=== PATIENT | male | born 1945 | race Caucasian/White ===

== ENCOUNTER → 2016-08-26 | Outpatient (CLI) | payer MEDICARE, OTHER ==
[~2016-08-26] MED LIST: ACID1TAB7 PO; AMIO200T42 PO; AMLO10TA2 PO; AMLO5TAB2 PO; AMLO5TAB4 PO; APIX5TAB PO; ASPI-496 PO; ATOR80TA PO; BUDE10.2 INH; CARB1TAB22 PO; CHOL500050 PO; CLON1TAB PO; DABI150C PO; DOCU100C58 PO; FLUT1DIS3 INH; FURO40TA6 PO; GABA300C10 PO; GABA600T2 PO; GABA800T2 PO; HYDR10TA4 PO; HYDR25TA11 PO; LOSA50TA6 PO; MORP15TA3 PO; MS CONTIN PO; OMEP-110 PO; OXYC5CAP4 PO; OXYC5TAB3 PO; POTA10TA12 PO; PRED10TA PO; RIFA550T PO; RIVA10TA PO; ROSU20TA PO; SERT100T5 PO; SPIR100T PO; clindamycin
== END | disposition home or self-care (01) ==
LOC: CVU 14:01
PROVIDERS: ATTEND Family Medicine
DX: I70.203 Unspecified atherosclerosis of native arteries of extremities, bilateral legs (principal); I10 Essential (primary) hypertension; E78.5 Hyperlipidemia, unspecified; S91.001A Unspecified open wound, right ankle, initial encounter; Z95.1 Presence of aortocoronary bypass graft; Z87.891 Personal history of nicotine dependence; Z86.73 Personal history of transient ischemic attack (TIA), and cerebral infarction without residual deficits; X58.XXXA Exposure to other specified factors, initial encounter; Y93.89 Activity, other specified; Y92.89 Other specified places as the place of occurrence of the external cause; Y99.8 Other external cause status
CPT/HCPCS: 93922; 93925

== ENCOUNTER → 2016-11-15 | Outpatient (CLI) | payer MEDICARE, OTHER ==
[2016-11-15 12:34] LABS: ASPARTATE AMINO TRANSFERASE 86 U/L (15-37); BLOOD UREA NITROGEN 25 mg/dL (7-18)
== END | disposition home or self-care (01) ==
LOC: CFH 11:48
DX: K74.60 Unspecified cirrhosis of liver (principal); R16.1 Splenomegaly, not elsewhere classified; R18.8 Other ascites; K76.6 Portal hypertension; Z90.49 Acquired absence of other specified parts of digestive tract
CPT/HCPCS: 36415; 76700; 80053; 82105; 82140; 85025

== ENCOUNTER → 2016-12-13 | Outpatient (CLI) | payer MEDICARE, OTHER ==
[~2016-12-13] MED LIST changes: +OMNIPAQUE 350 MG/ML, 100ML BOTTLE ONE
== END | disposition home or self-care (01) ==
LOC: CFH 14:27
PROVIDERS: ATTEND Surgery
DX: I72.3 Aneurysm of iliac artery (principal); I77.810 Thoracic aortic ectasia; I70.0 Atherosclerosis of aorta; K86.89 Other specified diseases of pancreas; R18.8 Other ascites; J98.11 Atelectasis
CPT/HCPCS: 71260; 74177; Q9967

== ENCOUNTER 2017-02-08 23:21 | Emergency (ER) | payer MEDICARE, OTHER ==
[~2017-02-08] VITALS: Ht 195.6 cm; Wt 96.0 kg
[~2017-02-08 23:21] MED LIST changes: +HYDR50CA PO; +LACT10SO28 PO; -OMNIPAQUE 350 MG/ML, 100ML BOTTLE ONE; +OXYB5TAB7 PO; +OXYC5CAP2 PO; -OXYC5CAP4 PO; -RIFA550T PO; +RIFA550T4 PO; +SERT100T PO
[2017-02-09] MEDS ORDERED: SODIUM CHLORIDE 0.9% 1,000ML IVBOLUS ONE
[2017-02-09] MEDS ORDERED: SODIUM CHLORIDE FLUSH 10ML SYR IVF ONE
[2017-02-09] MEDS ORDERED: LIDOCAINE 1%, 20ML INFIL ONE
[2017-02-09 00:19] LABS: HEMATOCRIT 33.1 % (39.2-51.8); HEMOGLOBIN 10.9 g/dL (13.7-18.0); WHITE BLOOD COUNT 6.4 x10^3/uL (3.4-10)
[2017-02-09] MEDS ORDERED: LIDOCAINE 1%, 20ML ONE (00:23)
[2017-02-09] MEDS ORDERED: morphine SULFATE 10 MG/ML, 1ML ONE (00:24)
[2017-02-09] MEDS ORDERED: DIPH,PERTUSS(ACELL),TET VAC/PF 0.5 ML IM-VACC ONE ×2 (00:24)
[2017-02-09 00:30] LABS: ASPARTATE AMINO TRANSFERASE 122 U/L (15-37); BLOOD UREA NITROGEN 18 mg/dL (7-18)
[2017-02-09] MEDS ORDERED: morphine SULFATE 10 MG/ML, 1ML IVPush ONE (00:30)
[2017-02-09] MEDS ORDERED: MORPHINE SULFATE 4 MG/ML, 1ML IVPush ONE (00:30)
[2017-02-09 00:38] LABS: IS PT STATUS REG ER OR PRE ER? YES
[2017-02-09] MEDS ORDERED: BACITRACIN ZINC OINT 500U/GM, 0.9 GM ONE (02:19)
[2017-02-09 02:46] VITALS: BP 120/60
== END 2017-02-09 02:59 | disposition home or self-care (01) ==
LOC: ED 23:59
DX: S01.111A Laceration without foreign body of right eyelid and periocular area, initial encounter (principal); S80.01XA Contusion of right knee, initial encounter; I13.0 Hypertensive heart and chronic kidney disease with heart failure and stage 1 through stage 4 chronic kidney disease, or unspecified chronic kidney disease; N18.9 Chronic kidney disease, unspecified; I50.9 Heart failure, unspecified; I48.91 Unspecified atrial fibrillation; J44.9 Chronic obstructive pulmonary disease, unspecified; G20 Parkinson's disease; F95.2 Tourette's disorder; K74.60 Unspecified cirrhosis of liver; W19.XXXA Unspecified fall, initial encounter; Y93.89 Activity, other specified; Y92.098 Other place in other non-institutional residence as the place of occurrence of the external cause; Y99.8 Other external cause status; I25.2 Old myocardial infarction; Z95.1 Presence of aortocoronary bypass graft; Z96.651 Presence of right artificial knee joint
CPT/HCPCS: 12052; 36415; 70450; 70486; 71010; 72125; 73564; 80053; 81001; 84484; 85025; 85610; 85730; 87086; 90471; 90715; 93005; 96361; 96374; 99285; J7030

== ENCOUNTER 2017-02-14 17:16 | Emergency (ER) | payer MEDICARE, OTHER ==
[~2017-02-14] VITALS: Ht 195.6 cm; Wt 99.0 kg
[2017-02-14 17:22] VITALS: BP 125/62
== END 2017-02-14 18:04 | disposition home or self-care (01) ==
LOC: ED 17:58
DX: S01.81XD Laceration without foreign body of other part of head, subsequent encounter (principal); K21.9 Gastro-esophageal reflux disease without esophagitis; J44.9 Chronic obstructive pulmonary disease, unspecified; I13.0 Hypertensive heart and chronic kidney disease with heart failure and stage 1 through stage 4 chronic kidney disease, or unspecified chronic kidney disease; I50.9 Heart failure, unspecified; N18.9 Chronic kidney disease, unspecified; Z90.49 Acquired absence of other specified parts of digestive tract; Z95.1 Presence of aortocoronary bypass graft; Z96.651 Presence of right artificial knee joint; X58.XXXD Exposure to other specified factors, subsequent encounter
CPT/HCPCS: 99283

== ENCOUNTER → 2017-03-10 | Outpatient (CLI) | payer MEDICARE, OTHER ==
[~2017-03-10] MED LIST changes: +ALBUMIN HUMAN 25%, 25GM/100ML ONE; +LIDOCAINE 1%, 20ML ONE
== END | disposition home or self-care (01) ==
LOC: RAD 11:43
DX: R18.8 Other ascites (principal); K74.69 Other cirrhosis of liver
CPT/HCPCS: 49083; 82042; 89051; J3490; P9047

== ENCOUNTER 2017-03-28 09:30 | Inpatient (IN) | payer MEDICARE, OTHER ==
[2017-03-28] VITALS (7 sets, daily range): BP systolic 98–109; BP diastolic 50–65
[~2017-03-28] VITALS: Ht 195.6 cm; Wt 96.0 kg
[~2017-03-28 09:30] MED LIST changes: -ALBUMIN HUMAN 25%, 25GM/100ML ONE; -LIDOCAINE 1%, 20ML ONE
[2017-03-28] MEDS ORDERED: PLEASE ENTER HEIGHT AND WEIGHT MC SCH (10:00)
[2017-03-28] MEDS ORDERED: SODIUM CHLORIDE 0.9% 1,000ML IVBOLUS ONE (10:00)
[2017-03-28] MEDS ORDERED: SODIUM CHLORIDE FLUSH 10ML SYR IVF ONE (10:00)
[2017-03-28] MEDS ORDERED: ONDANSETRON 2MG/ML, 2ML IVPush ONE (10:00)
[2017-03-28] MEDS ORDERED: ONDANSETRON 2MG/ML, 2ML ONE (10:05)
[2017-03-28 10:46] LABS: HEMATOCRIT 37.5 % (39.2-51.8); HEMOGLOBIN 12.2 g/dL (13.7-18.0); WHITE BLOOD COUNT 10.5 x10^3/uL (3.4-10)
[2017-03-28 10:50] LABS: ASPARTATE AMINO TRANSFERASE 524 U/L (15-37); BLOOD UREA NITROGEN 37 mg/dL (7-18)
[2017-03-28 11:00] LABS: IS PT STATUS REG ER OR PRE ER? YES
[2017-03-28] MEDS ORDERED: HEPARIN 5,000 UNITS/ML, 1ML ONE (11:19)
[2017-03-28] MEDS ORDERED: HEPARIN 25,000 UNITS/500ML PMX 0 ML ONE (11:19)
[2017-03-28 11:30] LABS: ANISOCYTOSIS 1+; MICROCYTOSIS 1+; OVALOCYTES 1+; POIKILOCYTOSIS 1+
[2017-03-28] MEDS ORDERED: HEPARIN 5,000 UNITS/ML, 1ML IV PRN (11:30)
[2017-03-28] MEDS ORDERED: HEPARIN 25,000 UNITS/500ML PMX 500 ML IV PRN ×2 (11:30→14:00)
[2017-03-28] MEDS ORDERED: HEPARIN 5,000 UNITS/ML, 1ML IV ONE ×2 (11:30→22:30)
[2017-03-28 11:52] LABS: ANTI-Xa-UNFRACTIONATED HEP 1.12 IU/mL (0.30-0.70)
[2017-03-28] MEDS ORDERED: LACTULOSE 20 GM/30 ML UDC PO ONE (12:30)
[2017-03-28] MEDS ORDERED: ONDANSETRON 2MG/ML, 2ML IVPush PRN (13:30)
[2017-03-28] MEDS: SODIUM CHLORIDE 0.9% 1,000 ML IV SCH (13:50)
[2017-03-28 14:00] LABS: IS PT STATUS REG ER OR PRE ER? NO
[2017-03-28] MEDS ORDERED: ALBUTEROL/IPRATROPIUM 2.5MG/0.5MG, 3 ML ONE (14:21)
[2017-03-28] MEDS: LACTULOSE 20 GM/30 ML UDC PO SCH ×3 (14:34→21:00)
[2017-03-28] MEDS ORDERED: LACTULOSE 3.3 GM/5 ML ORAL.SOL RC ONE ×3 (15:00→16:30)
[2017-03-28] MEDS: ALBUTEROL/IPRATROPIUM 2.5MG/0.5MG, 3 ML NPPB SCH ×2 (15:00→20:08)
[2017-03-28] MEDS ORDERED: ALBUMIN HUMAN 25% 50 ML IV ONE (15:00)
[2017-03-28] MEDS: FUROSEMIDE 40 MG/4 ML IV SCH ×2 (15:14→21:00)
[2017-03-28 15:59] LABS: IS PT STATUS REG ER OR PRE ER? NO
[2017-03-28] MEDS ORDERED: CEFTRIAXONE PMX 2GM/50ML 50 ML IV SCH (16:00)
[2017-03-28] MEDS ORDERED: LACTULOSE 10 GM/15 ML UDC PO SCH (16:00)
[2017-03-28] MEDS ORDERED: LIDOCAINE 2%, 20ML ONE (17:01)
[2017-03-28] MEDS: MEROPENEM 1 GM in SODIUM CHLORIDE 0.9% 100 ML IV SCH (17:02)
[2017-03-28] MEDS: PANTOPRAZOLE 40 MG IV IVPush SCH (18:08)
[2017-03-28 18:09] LABS: CYTOLOGY BODY FLUID RECD INTO PATHOLOGY; CYTOLOGY BODY FLUID SOURCE ASCITES FLUID
[2017-03-28] MEDS: RIFAXIMIN 550 MG TABLET PO SCH (21:00)
[2017-03-28] MEDS: ATORVASTATIN 40 MG TABLET PO SCH (21:00)
[2017-03-28] MEDS: OXYBUTYNIN CHLORIDE 5 MG TABLET PO SCH (21:00)
[2017-03-28 22:00] LABS: IS PT STATUS REG ER OR PRE ER? NO
[2017-03-28] MEDS: HEPARIN 25,000 UNITS/500ML PMX 500 ML IV PRN (22:45)
[2017-03-29 02:00] VITALS: BP 95/56
[2017-03-29] MEDS: ASPIRIN 81 MG TABLET EC PO SCH (05:09)
[2017-03-29 05:32] LABS: HEMATOCRIT 34.3 % (39.2-51.8); HEMOGLOBIN 11.4 g/dL (13.7-18.0); WHITE BLOOD COUNT 10.5 x10^3/uL (3.4-10)
[2017-03-29 05:43] LABS: ASPARTATE AMINO TRANSFERASE 393 U/L (15-37); BLOOD UREA NITROGEN 42 mg/dL (7-18); IS PT STATUS REG ER OR PRE ER? NO; TOTAL IRON BINDING CAPACITY 202 mcg/dL (250-450)
[2017-03-29] MEDS: PANTOPRAZOLE 40 MG IV IVPush SCH ×2 (05:58→17:58)
[2017-03-29] MEDS: SODIUM CHLORIDE 0.9% 1,000 ML IV SCH ×2 (05:58→22:18)
[2017-03-29] MEDS: MEROPENEM 1 GM in SODIUM CHLORIDE 0.9% 100 ML IV SCH ×2 (05:58→17:58)
[2017-03-29] MEDS ORDERED: ASPIRIN 81 MG TABLET EC PO SCH (06:00)
[2017-03-29] MEDS: FUROSEMIDE 40 MG/4 ML IV SCH ×3 (07:30→20:00)
[2017-03-29] MEDS: ALBUTEROL/IPRATROPIUM 2.5MG/0.5MG, 3 ML NPPB SCH ×4 (07:40→19:13)
[2017-03-29] MEDS: FLUTICASONE/VILANTEROL 200-25MCG/INH INH SCH (09:00)
[2017-03-29] MEDS ORDERED: FUROSEMIDE 40 MG TABLET PO SCH (09:00)
[2017-03-29] MEDS ORDERED: RIFAXIMIN 550 MG TABLET PO SCH (11:00)
[2017-03-29] MEDS ORDERED: GABAPENTIN 1800 MG PO SCH (11:00)
[2017-03-29] MEDS: ALBUMIN HUMAN 25% 100 ML IV SCH (11:09)
[2017-03-29 11:10] VITALS: BP 105/63
[2017-03-29] MEDS: LACTULOSE 20 GM/30 ML UDC PO SCH ×4 (11:13→21:00)
[2017-03-29] MEDS: SPIRONOLACTONE 100 MG TABLET PO SCH (11:14)
[2017-03-29] MEDS: RIFAXIMIN 550 MG TABLET PO SCH ×2 (11:14→22:19)
[2017-03-29] MEDS: SERTRALINE 100MG TABLET PO SCH (11:15)
[2017-03-29 12:15] VITALS: BP 103/56
[2017-03-29] MEDS ORDERED: NITROGLYCERIN 0.4 MG/SPRAY SL PRN (12:30)
[2017-03-29] MEDS ORDERED: NITROGLYCERIN 0.4 MG BOTTLE (25 TABS) SL PRN (12:30)
[2017-03-29 12:40] VITALS: BP 96/57
[2017-03-29 13:06] VITALS: BP 106/63
[2017-03-29] MEDS: GABAPENTIN 400 MG CAPSULE PO SCH ×2 (16:00→22:19)
[2017-03-29 19:23] VITALS: BP 97/60
[2017-03-29] MEDS: OXYBUTYNIN CHLORIDE 5 MG TABLET PO SCH (22:18)
[2017-03-29] MEDS: ATORVASTATIN 40 MG TABLET PO SCH (22:18)
[2017-03-29] MEDS: HEPARIN 25,000 UNITS/500ML PMX 500 ML IV PRN (22:26)
[2017-03-30 01:52] VITALS: BP 91/53
[2017-03-30 05:43] LABS: HEMATOCRIT 34.6 % (39.2-51.8); HEMOGLOBIN 11.5 g/dL (13.7-18.0); WHITE BLOOD COUNT 9.1 x10^3/uL (3.4-10)
[2017-03-30 05:49] LABS: ASPARTATE AMINO TRANSFERASE 267 U/L (15-37); BLOOD UREA NITROGEN 55 mg/dL (7-18)
[2017-03-30] MEDS: HEPARIN 5,000 UNITS/ML, 1ML IV PRN ×2 (06:04→13:05)
[2017-03-30] MEDS: MEROPENEM 1 GM in SODIUM CHLORIDE 0.9% 100 ML IV SCH ×2 (06:04→17:20)
[2017-03-30] MEDS: PANTOPRAZOLE 40 MG IV IVPush SCH ×2 (06:04→17:20)
[2017-03-30] MEDS: ALBUTEROL/IPRATROPIUM 2.5MG/0.5MG, 3 ML NPPB SCH ×4 (07:00→20:00)
[2017-03-30 07:31] VITALS: BP 94/60
[2017-03-30] MEDS: SPIRONOLACTONE 100 MG TABLET PO SCH ×2 (08:43→11:35)
[2017-03-30] MEDS: ALBUMIN HUMAN 25% 100 ML IV SCH (08:43)
[2017-03-30] MEDS: LACTULOSE 20 GM/30 ML UDC PO SCH ×3 (08:43→17:23)
[2017-03-30] MEDS: ASPIRIN 81 MG TABLET EC PO SCH (08:43)
[2017-03-30] MEDS: FLUTICASONE/VILANTEROL 200-25MCG/INH INH SCH ×2 (08:43→09:00)
[2017-03-30] MEDS: SERTRALINE 100MG TABLET PO SCH (08:44)
[2017-03-30] MEDS: RIFAXIMIN 550 MG TABLET PO SCH (08:44)
[2017-03-30] MEDS: GABAPENTIN 400 MG CAPSULE PO SCH ×4 (08:44→21:00)
[2017-03-30] MEDS: FUROSEMIDE 40 MG/4 ML IV SCH ×3 (10:30→17:20)
[2017-03-30 11:00] VITALS: BP 98/57
[2017-03-30 12:56] VITALS: BP 101/63
[2017-03-30] MEDS: SODIUM CHLORIDE 0.9% 1,000 ML IV SCH (13:05)
[2017-03-30 20:33] VITALS: BP 101/62
[2017-03-30] MEDS: HEPARIN 25,000 UNITS/500ML PMX 500 ML IV PRN (20:44)
[2017-03-30] MEDS: OXYBUTYNIN CHLORIDE 5 MG TABLET PO SCH (21:00)
[2017-03-30] MEDS: ROSUVASTATIN CALCIUM 20 MG PO/NG SCH (21:30)
[2017-03-30 22:14] LABS: ASPARTATE AMINO TRANSFERASE 214 U/L (15-37); BLOOD UREA NITROGEN 59 mg/dL (7-18)
[2017-03-30] MEDS ORDERED: LACTULOSE 20 GM/30 ML UDC ONE (22:39)
[2017-03-31 02:10] VITALS: BP 102/64
[2017-03-31] MEDS: SODIUM CHLORIDE 0.9% 1,000 ML IV SCH ×2 (02:13→22:53)
[2017-03-31] MEDS: HEPARIN 5,000 UNITS/ML, 1ML IV PRN ×2 (02:13→15:09)
[2017-03-31] MEDS: RIFAXIMIN 550 MG TABLET PO SCH ×3 (05:28→22:53)
[2017-03-31] MEDS: LACTULOSE 20 GM/30 ML UDC PO SCH ×4 (05:28→22:52)
[2017-03-31] MEDS: ASPIRIN 81 MG TABLET CHEW PO SCH (05:29)
[2017-03-31] MEDS: MEROPENEM 1 GM in SODIUM CHLORIDE 0.9% 100 ML IV SCH ×2 (05:29→17:20)
[2017-03-31] MEDS: PANTOPRAZOLE 40 MG IV IVPush SCH ×2 (05:29→17:25)
[2017-03-31 06:08] LABS: HEMATOCRIT 34.6 % (39.2-51.8); HEMOGLOBIN 11.4 g/dL (13.7-18.0)
[2017-03-31 06:23] LABS: BLOOD UREA NITROGEN 63 mg/dL (7-18)
[2017-03-31 06:26] LABS: ASPARTATE AMINO TRANSFERASE 201 U/L (15-37)
[2017-03-31] MEDS: ALBUTEROL/IPRATROPIUM 2.5MG/0.5MG, 3 ML NPPB SCH ×4 (07:30→20:00)
[2017-03-31 07:48] VITALS: BP 105/59
[2017-03-31] MEDS: SPIRONOLACTONE 100 MG TABLET PO SCH (09:59)
[2017-03-31] MEDS: FLUTICASONE/VILANTEROL 200-25MCG/INH INH SCH (09:59)
[2017-03-31] MEDS: SERTRALINE 100MG TABLET PO SCH (10:00)
[2017-03-31] MEDS: ALBUMIN HUMAN 25% 100 ML IV SCH (10:00)
[2017-03-31] MEDS: FUROSEMIDE 40 MG/4 ML IV SCH (10:59)
[2017-03-31] MEDS ORDERED: GABAPENTIN 400 MG CAPSULE NG SCH (11:30)
[2017-03-31] MEDS: METRONIDAZOLE PMX 500MG/100ML 100 ML IV SCH ×2 (12:50→22:53)
[2017-03-31] MEDS: HEPARIN 25,000 UNITS/500ML PMX 500 ML IV PRN (14:01)
[2017-03-31 15:26] VITALS: BP 101/58
[2017-03-31] MEDS: GABAPENTIN 250 MG/5 ML ORAL SOL NG SCH ×2 (16:00→22:51)
[2017-03-31 21:03] VITALS: BP 95/56
[2017-03-31] MEDS: OXYBUTYNIN CHLORIDE 5 MG TABLET PO SCH (22:53)
[2017-03-31] MEDS: ROSUVASTATIN CALCIUM 20 MG PO/NG SCH (22:54)
[2017-04-01 01:21] VITALS: BP 96/59
[2017-04-01 04:48] LABS: ASPARTATE AMINO TRANSFERASE 163 U/L (15-37); BLOOD UREA NITROGEN 70 mg/dL (7-18)
[2017-04-01 05:04] LABS: HEMATOCRIT 33.7 % (39.2-51.8); WHITE BLOOD COUNT 9.5 x10^3/uL (3.4-10)
[2017-04-01] MEDS: HEPARIN 5,000 UNITS/ML, 1ML IV PRN (05:38)
[2017-04-01] MEDS: PANTOPRAZOLE 40 MG IV IVPush SCH ×2 (05:39→18:11)
[2017-04-01] MEDS: MEROPENEM 1 GM in SODIUM CHLORIDE 0.9% 100 ML IV SCH ×2 (05:43→18:12)
[2017-04-01] MEDS: ASPIRIN 81 MG TABLET CHEW PO SCH (05:44)
[2017-04-01] MEDS: HEPARIN 25,000 UNITS/500ML PMX 500 ML IV PRN (05:47)
[2017-04-01 06:19] LABS: ANISOCYTOSIS 2+; OVALOCYTES 1+; TARGET CELLS 1+
[2017-04-01 06:20] LABS: MICROCYTOSIS 1+
[2017-04-01] MEDS: ALBUTEROL/IPRATROPIUM 2.5MG/0.5MG, 3 ML NPPB SCH ×4 (06:44→20:00)
[2017-04-01 07:54] VITALS: BP 94/51
[2017-04-01] MEDS: METRONIDAZOLE PMX 500MG/100ML 100 ML IV SCH ×2 (08:18→15:33)
[2017-04-01] MEDS: LACTULOSE 20 GM/30 ML UDC PO SCH ×3 (08:18→22:19)
[2017-04-01] MEDS: SPIRONOLACTONE 100 MG TABLET PO SCH (08:19)
[2017-04-01] MEDS: SERTRALINE 100MG TABLET PO SCH (08:19)
[2017-04-01] MEDS: FLUTICASONE/VILANTEROL 200-25MCG/INH INH SCH (08:19)
[2017-04-01] MEDS: GABAPENTIN 250 MG/5 ML ORAL SOL NG SCH ×2 (08:19→15:33)
[2017-04-01] MEDS: RIFAXIMIN 550 MG TABLET PO SCH ×2 (08:19→22:20)
[2017-04-01] MEDS ORDERED: FUROSEMIDE 20 MG/2 ML IV SCH (09:00)
[2017-04-01] MEDS: ALBUMIN HUMAN 25% 100 ML IV SCH (10:32)
[2017-04-01] MEDS: HEPARIN 5,000 UNITS/ML, 1ML SQ SCH ×2 (10:32→18:11)
[2017-04-01 13:24] VITALS: BP 97/55
[2017-04-01] MEDS: ROSUVASTATIN CALCIUM 20 MG PO/NG SCH (21:00)
[2017-04-01 21:19] VITALS: BP 110/59
[2017-04-01] MEDS: OXYBUTYNIN CHLORIDE 5 MG TABLET PO SCH (22:20)
[2017-04-01] MEDS: GABAPENTIN 400 MG CAPSULE PO SCH (22:20)
[2017-04-02] MEDS: HEPARIN 5,000 UNITS/ML, 1ML SQ SCH ×3 (00:16→17:34)
[2017-04-02] MEDS: METRONIDAZOLE PMX 500MG/100ML 100 ML IV SCH (00:16)
[2017-04-02 03:08] VITALS: BP 103/59
[2017-04-02] MEDS: MEROPENEM 1 GM in SODIUM CHLORIDE 0.9% 100 ML IV SCH (05:35)
[2017-04-02] MEDS: PANTOPRAZOLE 40 MG IV IVPush SCH ×2 (05:35→17:33)
[2017-04-02] MEDS: ASPIRIN 81 MG TABLET CHEW PO SCH (05:35)
[2017-04-02 06:03] LABS: BLOOD UREA NITROGEN 80 mg/dL (7-18)
[2017-04-02] MEDS: ALBUTEROL/IPRATROPIUM 2.5MG/0.5MG, 3 ML NPPB SCH ×3 (06:42→15:00)
[2017-04-02 07:14] VITALS: BP 105/59
[2017-04-02] MEDS: GABAPENTIN 400 MG CAPSULE PO SCH (08:56)
[2017-04-02] MEDS: LACTULOSE 20 GM/30 ML UDC PO SCH ×3 (08:56→19:43)
[2017-04-02] MEDS: FLUTICASONE/VILANTEROL 200-25MCG/INH INH SCH (08:56)
[2017-04-02] MEDS: RIFAXIMIN 550 MG TABLET PO SCH ×2 (08:57→19:43)
[2017-04-02] MEDS: SERTRALINE 100MG TABLET PO SCH (08:57)
[2017-04-02] MEDS ORDERED: FUROSEMIDE 20 MG/2 ML ONE ×2 (09:36)
[2017-04-02] MEDS: ALBUMIN HUMAN 25% 100 ML IV SCH (09:52)
[2017-04-02] MEDS ORDERED: FUROSEMIDE 100 MG/10 ML IV ONE (10:00)
[2017-04-02] MEDS ORDERED: LACTULOSE 20 GM/30 ML UDC PO SCH (11:00)
[2017-04-02] MEDS ORDERED: VECURONIUM 10 MG ONE (11:23)
[2017-04-02] MEDS ORDERED: PROPOFOL 10 MG/ML, 20ML ONE (11:23)
[2017-04-02] MEDS ORDERED: MIDAZOLAM 1 MG/ML, 5ML ONE (11:23)
[2017-04-02 11:36] LABS: ABG COLLECTION SITE RIGHT RADIAL; COLLATERAL CIRCULATION TESTING NORMAL
[2017-04-02] MEDS ORDERED: LIDOCAINE-MPF 1%, 2ML ENDO PRN (14:30)
[2017-04-02] MEDS ORDERED: BISACODYL 10 MG SUPP PR PRN (14:30)
[2017-04-02] MEDS ORDERED: SENNA/DOCUSATE TABLET NG PRN (14:30)
[2017-04-02] MEDS ORDERED: PHARMACY MAY ADJ FOR RENAL FX MC SCH (14:30)
[2017-04-02] MEDS ORDERED: LACTULOSE 20 GM/30 ML UDC NG PRN (14:30)
[2017-04-02] MEDS: ALBUTEROL/IPRATROPIUM 2.5MG/0.5MG, 3 ML INLINE SCH ×3 (14:30→23:10)
[2017-04-02] MEDS ORDERED: SENNOSIDES 8.8 MG/5 ML ORAL SOL NG PRN (14:30)
[2017-04-02 15:12] LABS: ABG COLLECTION SITE RIGHT RADIAL
[2017-04-02 15:13] LABS: COLLATERAL CIRCULATION TESTING NOT DOCUMENTED
[2017-04-02] MEDS: MEROPENEM 500 MG in SODIUM CHLORIDE 0.9% 50 ML IV SCH (17:33)
[2017-04-02] MEDS ORDERED: FUROSEMIDE 100 MG/10 ML IVPB ONE (19:00)
[2017-04-02] MEDS: KSCALE TO 4.0 IV SCH (19:30)
[2017-04-02] MEDS: OXYBUTYNIN CHLORIDE 5 MG TABLET PO SCH (19:43)
[2017-04-02] MEDS: ROSUVASTATIN CALCIUM 20 MG PO/NG SCH (19:43)
[2017-04-02] MEDS ORDERED: ALBUMIN HUMAN 25% 100 ML IV ONE (20:00)
[2017-04-02] MEDS: NOREPINEPHRINE 4 MG in SODIUM CHLORIDE 0.9% 246 ML IV PRN (20:18)
[2017-04-02] MEDS: FUROSEMIDE 100 MG in SODIUM CHLORIDE 0.9% 90 ML IV SCH (20:35)
[2017-04-02] MEDS ORDERED: FAMOTIDINE 20 MG/2 ML IV SCH (21:00)
[2017-04-03] MEDS: KSCALE TO 4.0 IV SCH ×4 (01:30→19:30)
[2017-04-03] MEDS: HEPARIN 5,000 UNITS/ML, 1ML SQ SCH ×3 (01:42→18:27)
[2017-04-03] MEDS: PROPOFOL 100 ML IV PRN (02:31)
[2017-04-03] MEDS: LACTULOSE 20 GM/30 ML UDC PO SCH (02:33)
[2017-04-03] MEDS: ALBUTEROL/IPRATROPIUM 2.5MG/0.5MG, 3 ML INLINE SCH ×6 (03:15→22:09)
[2017-04-03] MEDS: ALBUMIN HUMAN 25% 100 ML IV SCH ×4 (03:26→20:33)
[2017-04-03 04:30] LABS: ABG COLLECTION SITE RIGHT RADIAL; COLLATERAL CIRCULATION TESTING NORMAL
[2017-04-03 06:00] LABS: HEMATOCRIT 30.8 % (39.2-51.8); HEMOGLOBIN 10.2 g/dL (13.7-18.0); WHITE BLOOD COUNT 8.8 x10^3/uL (3.4-10)
[2017-04-03] MEDS: ASPIRIN 81 MG TABLET CHEW PO SCH (06:00)
[2017-04-03] MEDS: PANTOPRAZOLE 40 MG IV IVPush SCH ×2 (06:05→18:27)
[2017-04-03] MEDS: MEROPENEM 500 MG in SODIUM CHLORIDE 0.9% 50 ML IV SCH ×2 (06:05→18:37)
[2017-04-03 06:16] LABS: ASPARTATE AMINO TRANSFERASE 197 U/L (15-37); BLOOD UREA NITROGEN 95 mg/dL (7-18)
[2017-04-03] MEDS: FLUTICASONE/VILANTEROL 200-25MCG/INH INH SCH (08:19)
[2017-04-03] MEDS: FUROSEMIDE 40 MG/4 ML IV SCH (09:00)
[2017-04-03] MEDS: ERGOCALCIFEROL 50,000 UNIT CAPSULE PO SCH (11:17)
[2017-04-03] MEDS: RIFAXIMIN 550 MG TABLET PO SCH ×2 (11:17→20:33)
[2017-04-03] MEDS: SERTRALINE 100MG TABLET PO SCH (11:17)
[2017-04-03] MEDS: FENTANYL PF 100 MCG/2ML IVPush PRN (11:18)
[2017-04-03] MEDS: FUROSEMIDE 100 MG in SODIUM CHLORIDE 0.9% 90 ML IV SCH (13:55)
[2017-04-03] MEDS: ROSUVASTATIN CALCIUM 20 MG PO/NG SCH (20:33)
[2017-04-03] MEDS: OXYBUTYNIN CHLORIDE 5 MG TABLET PO SCH (20:33)
[2017-04-04] MEDS: ALBUTEROL/IPRATROPIUM 2.5MG/0.5MG, 3 ML INLINE SCH ×6 (02:30→22:20)
[2017-04-04] MEDS: HEPARIN 5,000 UNITS/ML, 1ML SQ SCH ×3 (02:33→18:10)
[2017-04-04] MEDS: PROPOFOL 100 ML IV PRN (02:33)
[2017-04-04] MEDS: ALBUMIN HUMAN 25% 100 ML IV SCH (02:33)
[2017-04-04 04:41] LABS: ABG COLLECTION SITE RIGHT RADIAL; COLLATERAL CIRCULATION TESTING NORMAL
[2017-04-04] MEDS: MEROPENEM 500 MG in SODIUM CHLORIDE 0.9% 50 ML IV SCH ×2 (05:35→18:10)
[2017-04-04 06:04] LABS: HEMATOCRIT 27.7 % (39.2-51.8); HEMOGLOBIN 9.4 g/dL (13.7-18.0); WHITE BLOOD COUNT 6.6 x10^3/uL (3.4-10)
[2017-04-04] MEDS: ASPIRIN 81 MG TABLET CHEW PO SCH (06:15)
[2017-04-04] MEDS: PANTOPRAZOLE 40 MG IV IVPush SCH ×2 (06:16→17:30)
[2017-04-04 06:36] LABS: BLOOD UREA NITROGEN 105 mg/dL (7-18)
[2017-04-04] MEDS: FLUTICASONE/VILANTEROL 200-25MCG/INH INH SCH (07:40)
[2017-04-04] MEDS: FUROSEMIDE 40 MG/4 ML IV SCH (09:00)
[2017-04-04] MEDS: SERTRALINE 100MG TABLET PO SCH (10:25)
[2017-04-04] MEDS: LACTULOSE 20 GM/30 ML UDC PO SCH ×3 (10:25→20:43)
[2017-04-04] MEDS: RIFAXIMIN 550 MG TABLET PO SCH ×2 (10:31→20:43)
[2017-04-04 14:55] LABS: HEP B SURF. AB 29.2 mIU/mL (0.0-10.0)
[2017-04-04] MEDS: ROSUVASTATIN CALCIUM 20 MG PO/NG SCH (20:43)
[2017-04-04] MEDS: OXYBUTYNIN CHLORIDE 5 MG TABLET PO SCH (20:43)
[2017-04-05] MEDS: FENTANYL PF 100 MCG/2ML IVPush PRN ×2 (00:01→01:07)
[2017-04-05] MEDS: NOREPINEPHRINE 4 MG in SODIUM CHLORIDE 0.9% 246 ML IV PRN (00:02)
[2017-04-05] MEDS: HEPARIN 5,000 UNITS/ML, 1ML SQ SCH ×3 (01:06→17:48)
[2017-04-05] MEDS: ALBUTEROL/IPRATROPIUM 2.5MG/0.5MG, 3 ML INLINE SCH ×6 (02:30→22:50)
[2017-04-05 04:43] LABS: HEMATOCRIT 30.5 % (39.2-51.8); HEMOGLOBIN 10.3 g/dL (13.7-18.0); WHITE BLOOD COUNT 7.4 x10^3/uL (3.4-10)
[2017-04-05 04:52] LABS: ABG COLLECTION SITE RIGHT RADIAL; COLLATERAL CIRCULATION TESTING NORMAL
[2017-04-05 04:57] LABS: BLOOD UREA NITROGEN 93 mg/dL (7-18)
[2017-04-05 05:02] LABS: ASPARTATE AMINO TRANSFERASE 165 U/L (15-37)
[2017-04-05] MEDS: MEROPENEM 500 MG in SODIUM CHLORIDE 0.9% 50 ML IV SCH ×2 (06:02→22:20)
[2017-04-05] MEDS: PANTOPRAZOLE 40 MG IV IVPush SCH ×2 (06:02→21:58)
[2017-04-05] MEDS: PROPOFOL 100 ML IV PRN (06:03)
[2017-04-05] MEDS: RIFAXIMIN 550 MG TABLET PO SCH ×2 (08:26→21:58)
[2017-04-05] MEDS: SERTRALINE 100MG TABLET PO SCH (08:26)
[2017-04-05] MEDS: ASPIRIN 81 MG TABLET CHEW PO SCH (08:26)
[2017-04-05] MEDS: LACTULOSE 20 GM/30 ML UDC PO SCH ×3 (08:26→21:58)
[2017-04-05] MEDS: FLUTICASONE/VILANTEROL 200-25MCG/INH INH SCH (09:00)
[2017-04-05] MEDS: ERGOCALCIFEROL 50,000 UNIT CAPSULE PO SCH (12:00)
[2017-04-05] MEDS ORDERED: ALBUTEROL SULFATE 2.5 MG/3 ML ONE (14:00)
[2017-04-05] MEDS: OXYBUTYNIN CHLORIDE 5 MG TABLET PO SCH (21:58)
[2017-04-05] MEDS: ROSUVASTATIN CALCIUM 20 MG PO/NG SCH (21:58)
[2017-04-06] MEDS: NOREPINEPHRINE 4 MG in SODIUM CHLORIDE 0.9% 246 ML IV PRN ×2 (01:47→16:19)
[2017-04-06] MEDS: HEPARIN 5,000 UNITS/ML, 1ML SQ SCH ×2 (01:47→08:31)
[2017-04-06] MEDS: ALBUTEROL/IPRATROPIUM 2.5MG/0.5MG, 3 ML INLINE SCH ×6 (02:30→22:40)
[2017-04-06 04:53] LABS: ABG COLLECTION SITE RIGHT RADIAL
[2017-04-06 04:54] LABS: COLLATERAL CIRCULATION TESTING NORMAL
[2017-04-06] MEDS: ASPIRIN 81 MG TABLET CHEW PO SCH (06:32)
[2017-04-06 07:09] LABS: HEMATOCRIT 30.9 % (39.2-51.8); HEMOGLOBIN 10.7 g/dL (13.7-18.0); WHITE BLOOD COUNT 8.5 x10^3/uL (3.4-10)
[2017-04-06 07:22] LABS: BLOOD UREA NITROGEN 70 mg/dL (7-18)
[2017-04-06] MEDS: PANTOPRAZOLE 40 MG IV IVPush SCH ×2 (08:30→21:57)
[2017-04-06] MEDS: SERTRALINE 100MG TABLET PO SCH (08:30)
[2017-04-06] MEDS: LACTULOSE 20 GM/30 ML UDC PO SCH ×3 (08:30→21:58)
[2017-04-06] MEDS: RIFAXIMIN 550 MG TABLET PO SCH ×2 (08:30→21:58)
[2017-04-06] MEDS: MEROPENEM 500 MG in SODIUM CHLORIDE 0.9% 50 ML IV SCH ×2 (08:31→21:57)
[2017-04-06] MEDS: FLUTICASONE/VILANTEROL 200-25MCG/INH INH SCH (09:00)
[2017-04-06] MEDS: FENTANYL PF 100 MCG/2ML IVPush PRN ×2 (09:37→16:19)
[2017-04-06] MEDS: ROSUVASTATIN CALCIUM 20 MG PO/NG SCH (21:58)
[2017-04-06] MEDS: APIXABAN 5 MG TABLET PO SCH (21:58)
[2017-04-06] MEDS: OXYBUTYNIN CHLORIDE 5 MG TABLET PO SCH (21:58)
[2017-04-07] MEDS: MORPHINE SULFATE 4 MG/ML, 1ML IVPush PRN ×3 (00:14→16:11)
[2017-04-07] MEDS: ALBUTEROL/IPRATROPIUM 2.5MG/0.5MG, 3 ML INLINE SCH ×5 (02:10→19:56)
[2017-04-07 03:40] LABS: HEMATOCRIT 31.9 % (39.2-51.8); HEMOGLOBIN 10.6 g/dL (13.7-18.0); WHITE BLOOD COUNT 9.2 x10^3/uL (3.4-10)
[2017-04-07 03:52] LABS: BLOOD UREA NITROGEN 88 mg/dL (7-18)
[2017-04-07 04:31] LABS: ABG COLLECTION SITE RIGHT RADIAL; COLLATERAL CIRCULATION TESTING NORMAL
[2017-04-07] MEDS: ASPIRIN 81 MG TABLET CHEW PO SCH (06:34)
[2017-04-07] MEDS: NOREPINEPHRINE 4 MG in SODIUM CHLORIDE 0.9% 246 ML IV PRN ×2 (07:24→21:12)
[2017-04-07] MEDS: PANTOPRAZOLE 40 MG IV IVPush SCH ×2 (08:14→21:11)
[2017-04-07] MEDS: APIXABAN 5 MG TABLET PO SCH ×2 (08:15→21:12)
[2017-04-07] MEDS: RIFAXIMIN 550 MG TABLET PO SCH ×2 (08:15→21:12)
[2017-04-07] MEDS: LACTULOSE 20 GM/30 ML UDC PO SCH ×3 (08:15→21:12)
[2017-04-07] MEDS: SERTRALINE 100MG TABLET PO SCH (08:16)
[2017-04-07] MEDS: FLUTICASONE/VILANTEROL 200-25MCG/INH INH SCH (09:00)
[2017-04-07] MEDS: VASOPRESSIN 50 UNIT in SODIUM CHLORIDE 0.9% 247.5 ML IV PRN (15:42)
[2017-04-07 16:25] LABS: PTH INTACT INTERPRETATION ** Comment **
[2017-04-07 16:47] LABS: FERRITIN 175.7 ng/mL (26-388)
[2017-04-07 17:27] LABS: PARATHYROID HORMONE INTACT 150.8 pg/mL (14-72)
[2017-04-07] MEDS: FENTANYL PF 100 MCG/2ML IVPush PRN (21:12)
[2017-04-07] MEDS: OXYBUTYNIN CHLORIDE 5 MG TABLET PO SCH (21:12)
[2017-04-07] MEDS: ROSUVASTATIN CALCIUM 20 MG PO/NG SCH (21:13)
[2017-04-08] MEDS: ALBUTEROL/IPRATROPIUM 2.5MG/0.5MG, 3 ML INLINE SCH ×4 (00:19→10:20)
[2017-04-08] MEDS: FENTANYL PF 100 MCG/2ML IVPush PRN (01:20)
[2017-04-08 04:00] VITALS: BP 110/64
[2017-04-08 04:07] LABS: BLOOD UREA NITROGEN 60 mg/dL (7-18)
[2017-04-08 04:29] LABS: HEMATOCRIT 30.7 % (39.2-51.8); HEMOGLOBIN 10.4 g/dL (13.7-18.0); WHITE BLOOD COUNT 9.8 x10^3/uL (3.4-10)
[2017-04-08 04:41] LABS: ABG COLLECTION SITE LEFT RADIAL; COLLATERAL CIRCULATION TESTING NORMAL
[2017-04-08] MEDS: ASPIRIN 81 MG TABLET CHEW PO SCH (05:30)
[2017-04-08 05:51] LABS: ANISOCYTOSIS 1+; TARGET CELLS 1+
[2017-04-08 05:52] LABS: OVALOCYTES 1+; POLYCHROMASIA 1+
[2017-04-08] MEDS: FLUTICASONE/VILANTEROL 200-25MCG/INH INH SCH (07:49)
[2017-04-08] MEDS: RIFAXIMIN 550 MG TABLET PO SCH ×2 (07:59→22:19)
[2017-04-08] MEDS: LACTULOSE 20 GM/30 ML UDC PO SCH ×3 (07:59→21:56)
[2017-04-08] MEDS: PANTOPRAZOLE 40 MG IV IVPush SCH ×2 (07:59→22:19)
[2017-04-08] MEDS: SERTRALINE 100MG TABLET PO SCH (08:00)
[2017-04-08] MEDS: APIXABAN 5 MG TABLET PO SCH ×2 (08:00→22:19)
[2017-04-08] MEDS: VANCOMYCIN 50 MG/ML ORAL SUSP PO SCH ×2 (16:12→22:20)
[2017-04-08] MEDS: MORPHINE SULFATE 4 MG/ML, 1ML IVPush PRN ×2 (16:12→22:20)
[2017-04-08] MEDS: ALBUTEROL/IPRATROPIUM 2.5MG/0.5MG, 3 ML NPPB SCH ×2 (16:20→20:35)
[2017-04-08] MEDS: OXYBUTYNIN CHLORIDE 5 MG TABLET PO SCH (22:19)
[2017-04-08] MEDS: ROSUVASTATIN CALCIUM 20 MG PO/NG SCH (22:20)
[2017-04-09 04:00] VITALS: BP 92/49
[2017-04-09 04:43] LABS: ABG COLLECTION SITE NOT DOCUMENTED
[2017-04-09] MEDS: VANCOMYCIN 50 MG/ML ORAL SUSP PO SCH ×4 (04:47→21:28)
[2017-04-09] MEDS: FENTANYL PF 100 MCG/2ML IVPush PRN ×2 (05:17→10:19)
[2017-04-09 05:55] LABS: BLOOD UREA NITROGEN 54 mg/dL (7-18); HEMATOCRIT 29.4 % (39.2-51.8); HEMOGLOBIN 9.8 g/dL (13.7-18.0); WHITE BLOOD COUNT 9.1 x10^3/uL (3.4-10)
[2017-04-09] MEDS: ASPIRIN 81 MG TABLET CHEW PO SCH (06:38)
[2017-04-09] MEDS: ALBUTEROL/IPRATROPIUM 2.5MG/0.5MG, 3 ML NPPB SCH ×4 (07:00→18:55)
[2017-04-09] MEDS: VASOPRESSIN 50 UNIT in SODIUM CHLORIDE 0.9% 247.5 ML IV PRN (07:06)
[2017-04-09] MEDS: APIXABAN 5 MG TABLET PO SCH ×2 (10:18→21:27)
[2017-04-09] MEDS: SERTRALINE 100MG TABLET PO SCH (10:18)
[2017-04-09] MEDS: PANTOPRAZOLE 40 MG IV IVPush SCH ×2 (10:18→21:28)
[2017-04-09] MEDS: LACTULOSE 20 GM/30 ML UDC PO SCH ×3 (10:18→21:28)
[2017-04-09] MEDS: FLUTICASONE/VILANTEROL 200-25MCG/INH INH SCH (10:20)
[2017-04-09] MEDS: RIFAXIMIN 550 MG TABLET PO SCH ×2 (10:21→21:27)
[2017-04-09] MEDS: MIDODRINE 5 MG TABLET PO SCH ×2 (15:48→21:27)
[2017-04-09] MEDS: OXYcodone 5 MG/5 ML ORAL.SOL UDC PO PRN (17:41)
[2017-04-09] MEDS: ROSUVASTATIN CALCIUM 20 MG PO/NG SCH (21:00)
[2017-04-09] MEDS: OXYBUTYNIN CHLORIDE 5 MG TABLET PO SCH (21:27)
[2017-04-10] MEDS: OXYcodone 5 MG/5 ML ORAL.SOL UDC PO PRN ×3 (01:15→18:04)
[2017-04-10] MEDS: NOREPINEPHRINE 4 MG in SODIUM CHLORIDE 0.9% 246 ML IV PRN (03:01)
[2017-04-10 04:24] LABS: ABG COLLECTION SITE LEFT RADIAL; COLLATERAL CIRCULATION TESTING NORMAL
[2017-04-10 04:36] LABS: BLOOD UREA NITROGEN 61 mg/dL (7-18)
[2017-04-10] MEDS: VANCOMYCIN 50 MG/ML ORAL SUSP PO SCH ×4 (04:40→21:10)
[2017-04-10 04:48] LABS: HEMATOCRIT 29.6 % (39.2-51.8); HEMOGLOBIN 9.9 g/dL (13.7-18.0); WHITE BLOOD COUNT 10.8 x10^3/uL (3.4-10)
[2017-04-10] MEDS: ASPIRIN 81 MG TABLET CHEW PO SCH (06:38)
[2017-04-10] MEDS: ALBUTEROL/IPRATROPIUM 2.5MG/0.5MG, 3 ML NPPB SCH ×4 (07:47→20:00)
[2017-04-10] MEDS: FLUTICASONE/VILANTEROL 200-25MCG/INH INH SCH (07:57)
[2017-04-10] MEDS: SERTRALINE 100MG TABLET PO SCH (07:58)
[2017-04-10] MEDS: PANTOPRAZOLE 40 MG IV IVPush SCH ×2 (07:58→21:10)
[2017-04-10] MEDS: APIXABAN 5 MG TABLET PO SCH ×2 (07:59→21:10)
[2017-04-10] MEDS: MIDODRINE 5 MG TABLET PO SCH ×3 (07:59→21:10)
[2017-04-10] MEDS: LACTULOSE 20 GM/30 ML UDC PO SCH ×2 (07:59→21:10)
[2017-04-10] MEDS: RIFAXIMIN 550 MG TABLET PO SCH ×2 (08:00→21:11)
[2017-04-10 12:18] LABS: PTH INTACT INTERPRETATION ** Comment **
[2017-04-10 12:43] LABS: PARATHYROID HORMONE INTACT 99.9 pg/mL (14-72)
[2017-04-10 12:45] LABS: FERRITIN 285.8 ng/mL (26-388)
[2017-04-10] MEDS: METOCLOPRAMIDE 5 MG/ML, 2ML IVPush SCH ×2 (12:51→18:30)
[2017-04-10] MEDS: ROSUVASTATIN CALCIUM 20 MG PO/NG SCH (21:00)
[2017-04-10] MEDS: OXYBUTYNIN CHLORIDE 5 MG TABLET PO SCH (21:10)
[2017-04-11] MEDS: OXYcodone 5 MG/5 ML ORAL.SOL UDC PO PRN ×3 (00:29→16:28)
[2017-04-11] MEDS: METOCLOPRAMIDE 5 MG/ML, 2ML IVPush SCH ×4 (00:30→17:48)
[2017-04-11 04:20] LABS: HEMATOCRIT 28.6 % (39.2-51.8); HEMOGLOBIN 9.5 g/dL (13.7-18.0); WHITE BLOOD COUNT 10.4 x10^3/uL (3.4-10)
[2017-04-11 04:33] LABS: ASPARTATE AMINO TRANSFERASE 355 U/L (15-37); BLOOD UREA NITROGEN 42 mg/dL (7-18)
[2017-04-11] MEDS: VANCOMYCIN 50 MG/ML ORAL SUSP PO SCH ×4 (05:27→21:53)
[2017-04-11] MEDS: ASPIRIN 81 MG TABLET CHEW PO SCH (05:27)
[2017-04-11 05:35] LABS: ABG COLLECTION SITE RIGHT RADIAL; COLLATERAL CIRCULATION TESTING NORMAL
[2017-04-11] MEDS: NOREPINEPHRINE 4 MG in SODIUM CHLORIDE 0.9% 246 ML IV PRN (05:55)
[2017-04-11] MEDS: ALBUTEROL/IPRATROPIUM 2.5MG/0.5MG, 3 ML NPPB SCH (07:33)
[2017-04-11] MEDS ORDERED: POTASSIUM CHLORIDE 20 MEQ PACKET PO ONE (08:00)
[2017-04-11] MEDS: FLUTICASONE/VILANTEROL 200-25MCG/INH INH SCH (09:00)
[2017-04-11] MEDS: APIXABAN 5 MG TABLET PO SCH ×2 (09:27→21:52)
[2017-04-11] MEDS: SERTRALINE 100MG TABLET PO SCH (09:27)
[2017-04-11] MEDS: MIDODRINE 5 MG TABLET PO SCH ×3 (09:28→21:52)
[2017-04-11] MEDS: LACTULOSE 20 GM/30 ML UDC PO SCH ×2 (09:30→21:52)
[2017-04-11] MEDS: RIFAXIMIN 550 MG TABLET PO SCH ×2 (09:30→21:52)
[2017-04-11] MEDS: PANTOPRAZOLE 40 MG IV IVPush SCH ×2 (09:30→21:51)
[2017-04-11] MEDS: ROSUVASTATIN CALCIUM 20 MG PO/NG SCH (21:00)
[2017-04-11] MEDS: OXYBUTYNIN CHLORIDE 5 MG TABLET PO SCH (21:52)
[2017-04-12] MEDS: METOCLOPRAMIDE 5 MG/ML, 2ML IVPush SCH ×4 (00:45→18:15)
[2017-04-12 04:37] LABS: HEMATOCRIT 28.2 % (39.2-51.8); HEMOGLOBIN 9.3 g/dL (13.7-18.0); WHITE BLOOD COUNT 11.6 x10^3/uL (3.4-10)
[2017-04-12] MEDS: VANCOMYCIN 50 MG/ML ORAL SUSP PO SCH ×4 (04:46→21:10)
[2017-04-12 04:54] LABS: ASPARTATE AMINO TRANSFERASE 342 U/L (15-37); BLOOD UREA NITROGEN 51 mg/dL (7-18)
[2017-04-12] MEDS: ASPIRIN 81 MG TABLET CHEW PO SCH (05:50)
[2017-04-12] MEDS ORDERED: ALBUTEROL/IPRATROPIUM 2.5MG/0.5MG, 3 ML NPPB PRN (07:00)
[2017-04-12] MEDS: PANTOPRAZOLE 40 MG IV IVPush SCH ×2 (07:50→21:10)
[2017-04-12] MEDS: APIXABAN 5 MG TABLET PO SCH ×2 (07:50→21:10)
[2017-04-12] MEDS: MIDODRINE 5 MG TABLET PO SCH ×3 (08:53→21:09)
[2017-04-12] MEDS: LACTULOSE 20 GM/30 ML UDC PO SCH ×2 (08:53→21:10)
[2017-04-12] MEDS: FLUTICASONE/VILANTEROL 200-25MCG/INH INH SCH (09:00)
[2017-04-12] MEDS: RIFAXIMIN 550 MG TABLET PO SCH ×2 (09:00→21:09)
[2017-04-12] MEDS: SERTRALINE 100MG TABLET PO SCH ×2 (09:00→10:46)
[2017-04-12] MEDS: ERGOCALCIFEROL 50,000 UNIT CAPSULE PO SCH (11:46)
[2017-04-12] MEDS ORDERED: LIDOCAINE 2%, 20ML ONE ×2 (13:52→14:27)
[2017-04-12] MEDS ORDERED: FLUMAZENIL 0.1 MG/1 ML, 5ML ONE (13:59)
[2017-04-12] MEDS ORDERED: NALOXONE 1 MG/ML, 2ML ONE (13:59)
[2017-04-12] MEDS ORDERED: FENTANYL PF 100 MCG/2ML ONE (13:59)
[2017-04-12] MEDS ORDERED: MIDAZOLAM 1 MG/ML, 5ML ONE (13:59)
[2017-04-12] MEDS: OXYBUTYNIN CHLORIDE 5 MG TABLET PO SCH (21:10)
[2017-04-12] MEDS: OXYcodone 5 MG/5 ML ORAL.SOL UDC PO PRN (21:10)
[2017-04-12] MEDS: ROSUVASTATIN CALCIUM 20 MG PO/NG SCH (21:10)
[2017-04-13] MEDS: METOCLOPRAMIDE 5 MG/ML, 2ML IVPush SCH ×4 (01:52→17:56)
[2017-04-13 05:04] LABS: HEMATOCRIT 27.6 % (39.2-51.8); HEMOGLOBIN 9.2 g/dL (13.7-18.0); WHITE BLOOD COUNT 11.4 x10^3/uL (3.4-10)
[2017-04-13 05:19] LABS: ASPARTATE AMINO TRANSFERASE 460 U/L (15-37); BLOOD UREA NITROGEN 47 mg/dL (7-18)
[2017-04-13] MEDS: VANCOMYCIN 50 MG/ML ORAL SUSP PO SCH ×4 (05:49→23:39)
[2017-04-13] MEDS: ASPIRIN 81 MG TABLET CHEW PO SCH (05:49)
[2017-04-13] MEDS: PANTOPRAZOLE 40 MG IV IVPush SCH ×2 (08:44→21:39)
[2017-04-13] MEDS: LACTULOSE 20 GM/30 ML UDC PO SCH ×3 (08:44→21:54)
[2017-04-13] MEDS: APIXABAN 5 MG TABLET PO SCH ×2 (08:44→21:39)
[2017-04-13] MEDS: SERTRALINE 100MG TABLET PO SCH (08:45)
[2017-04-13] MEDS: RIFAXIMIN 550 MG TABLET PO SCH ×2 (08:45→21:38)
[2017-04-13] MEDS: MIDODRINE 5 MG TABLET PO SCH ×3 (08:45→21:37)
[2017-04-13] MEDS: OXYcodone 5 MG/5 ML ORAL.SOL UDC PO PRN (08:52)
[2017-04-13] MEDS: FLUTICASONE/VILANTEROL 200-25MCG/INH INH SCH (09:00)
[2017-04-13 19:37] VITALS: BP 99/56
[2017-04-13] MEDS: OXYBUTYNIN CHLORIDE 5 MG TABLET PO SCH (21:38)
[2017-04-13] MEDS: ROSUVASTATIN CALCIUM 20 MG PO/NG SCH (21:40)
[2017-04-14] MEDS: METOCLOPRAMIDE 5 MG/ML, 2ML IVPush SCH ×4 (00:49→18:30)
[2017-04-14] MEDS: OXYcodone 5 MG/5 ML ORAL.SOL UDC PO PRN (01:50)
[2017-04-14 01:56] VITALS: BP 91/45
[2017-04-14 03:39] VITALS: BP 104/46
[2017-04-14] MEDS: VANCOMYCIN 50 MG/ML ORAL SUSP PO SCH ×4 (04:55→21:06)
[2017-04-14 04:57] VITALS: BP 108/42
[2017-04-14 05:48] LABS: HEMATOCRIT 28.3 % (39.2-51.8); HEMOGLOBIN 9.5 g/dL (13.7-18.0)
[2017-04-14 06:02] LABS: ASPARTATE AMINO TRANSFERASE 366 U/L (15-37); BLOOD UREA NITROGEN 59 mg/dL (7-18)
[2017-04-14 06:13] VITALS: BP 105/48
[2017-04-14] MEDS: ASPIRIN 81 MG TABLET CHEW PO SCH (06:52)
[2017-04-14 08:15] VITALS: BP 108/52
[2017-04-14] MEDS: LACTULOSE 20 GM/30 ML UDC PO SCH ×2 (09:00→21:00)
[2017-04-14] MEDS: PANTOPRAZOLE 40 MG IV IVPush SCH ×2 (09:00→21:06)
[2017-04-14] MEDS: FLUTICASONE/VILANTEROL 200-25MCG/INH INH SCH (11:05)
[2017-04-14] MEDS: RIFAXIMIN 550 MG TABLET PO SCH ×2 (11:13→21:00)
[2017-04-14] MEDS: MIDODRINE 5 MG TABLET PO SCH ×3 (11:14→21:00)
[2017-04-14] MEDS: APIXABAN 5 MG TABLET PO SCH ×2 (11:14→21:05)
[2017-04-14] MEDS: SERTRALINE 100MG TABLET PO SCH (11:14)
[2017-04-14] MEDS: ROSUVASTATIN CALCIUM 20 MG PO/NG SCH (21:00)
[2017-04-14] MEDS: OXYBUTYNIN CHLORIDE 5 MG TABLET PO SCH (21:05)
[2017-04-14 21:35] VITALS: BP 103/57
[2017-04-15] MEDS: METOCLOPRAMIDE 5 MG/ML, 2ML IVPush SCH ×2 (00:43→06:14)
[2017-04-15 01:29] VITALS: BP 96/58
[2017-04-15] MEDS: VANCOMYCIN 50 MG/ML ORAL SUSP PO SCH ×4 (04:20→22:37)
[2017-04-15] MEDS: ASPIRIN 81 MG TABLET CHEW PO SCH (05:31)
[2017-04-15 06:12] LABS: HEMATOCRIT 29.2 % (39.2-51.8); HEMOGLOBIN 9.7 g/dL (13.7-18.0); WHITE BLOOD COUNT 10.2 x10^3/uL (3.4-10)
[2017-04-15 06:31] VITALS: BP 101/41
[2017-04-15 06:35] LABS: BLOOD UREA NITROGEN 51 mg/dL (7-18)
[2017-04-15 07:04] LABS: DIFF TOTAL CELLS COUNTED 100 CELL DIFF
[2017-04-15 07:06] LABS: ANISOCYTOSIS 1+; HYPOCHROMIA 1+; OVALOCYTES 1+; TARGET CELLS 1+; VERIFY COUNTS? YES
[2017-04-15 07:07] LABS: POLYCHROMASIA 1+
[2017-04-15 07:08] LABS: SPHEROCYTES 1+
[2017-04-15 07:09] LABS: LARGE PLATELETS 1+
[2017-04-15] MEDS: FLUTICASONE/VILANTEROL 200-25MCG/INH INH SCH (09:00)
[2017-04-15] MEDS: RIFAXIMIN 550 MG TABLET PO SCH ×2 (09:00→21:00)
[2017-04-15] MEDS: MIDODRINE 5 MG TABLET PO SCH ×3 (09:00→21:00)
[2017-04-15] MEDS: LACTULOSE 20 GM/30 ML UDC PO SCH ×2 (09:00→21:00)
[2017-04-15] MEDS: APIXABAN 5 MG TABLET PO SCH ×2 (09:00→21:00)
[2017-04-15] MEDS: SERTRALINE 100MG TABLET PO SCH (09:00)
[2017-04-15] MEDS: OXYcodone 5 MG/5 ML ORAL.SOL UDC PO PRN (11:46)
[2017-04-15 12:22] VITALS: BP 79/45
[2017-04-15] MEDS: ROSUVASTATIN CALCIUM 20 MG PO/NG SCH (21:00)
[2017-04-16] MEDS: VANCOMYCIN 50 MG/ML ORAL SUSP PO SCH ×4 (04:00→21:04)
[2017-04-16 05:07] LABS: BLOOD UREA NITROGEN 68 mg/dL (7-18)
[2017-04-16 05:11] LABS: ASPARTATE AMINO TRANSFERASE 360 U/L (15-37)
[2017-04-16] MEDS: ASPIRIN 81 MG TABLET CHEW PO SCH (05:44)
[2017-04-16 06:57] VITALS: BP 93/54
[2017-04-16] MEDS: FLUTICASONE/VILANTEROL 200-25MCG/INH INH SCH (09:00)
[2017-04-16] MEDS: LACTULOSE 20 GM/30 ML UDC PO SCH ×2 (09:00→21:00)
[2017-04-16] MEDS: MIDODRINE 5 MG TABLET PO SCH ×3 (09:00→21:00)
[2017-04-16] MEDS: APIXABAN 5 MG TABLET PO SCH ×2 (09:00→21:00)
[2017-04-16] MEDS: RIFAXIMIN 550 MG TABLET PO SCH ×2 (09:00→21:00)
[2017-04-16] MEDS: SERTRALINE 100MG TABLET PO SCH (09:00)
[2017-04-16] MEDS: OXYcodone 5 MG/5 ML ORAL.SOL UDC PO PRN ×2 (11:57→16:02)
[2017-04-16 15:23] VITALS: BP 90/50
[2017-04-16 21:01] VITALS: BP 90/51
[2017-04-17 01:50] VITALS: BP 93/52
[2017-04-17] MEDS: VANCOMYCIN 50 MG/ML ORAL SUSP PO SCH ×5 (04:00→21:50)
[2017-04-17] MEDS: ASPIRIN 81 MG TABLET CHEW PO SCH (06:00)
[2017-04-17 06:28] LABS: BLOOD UREA NITROGEN 89 mg/dL (7-18)
[2017-04-17] MEDS: LACTULOSE 20 GM/30 ML UDC PO SCH ×2 (08:12→21:00)
[2017-04-17] MEDS: FLUTICASONE/VILANTEROL 200-25MCG/INH INH SCH (08:12)
[2017-04-17 08:55] VITALS: BP 91/51
[2017-04-17] MEDS: APIXABAN 5 MG TABLET PO SCH ×2 (09:00→21:00)
[2017-04-17] MEDS: RIFAXIMIN 550 MG TABLET PO SCH ×2 (09:00→21:00)
[2017-04-17] MEDS: MIDODRINE 5 MG TABLET PO SCH ×3 (09:00→21:00)
[2017-04-17] MEDS: SERTRALINE 100MG TABLET PO SCH (09:00)
[2017-04-17 14:00] VITALS: BP 94/41
[2017-04-17 19:43] VITALS: BP 94/50
[2017-04-18 03:03] VITALS: BP 92/54
[2017-04-18] MEDS: VANCOMYCIN 50 MG/ML ORAL SUSP PO SCH ×2 (04:00→10:00)
[2017-04-18 05:43] LABS: BLOOD UREA NITROGEN 60 mg/dL (7-18)
[2017-04-18] MEDS: ASPIRIN 81 MG TABLET CHEW PO SCH (06:00)
[2017-04-18 08:45] VITALS: BP 90/48
[2017-04-18] MEDS: SERTRALINE 100MG TABLET PO SCH (09:00)
[2017-04-18] MEDS: LACTULOSE 20 GM/30 ML UDC PO SCH (09:00)
[2017-04-18] MEDS: MIDODRINE 5 MG TABLET PO SCH (09:00)
[2017-04-18] MEDS: FLUTICASONE/VILANTEROL 200-25MCG/INH INH SCH (09:00)
[2017-04-18] MEDS: RIFAXIMIN 550 MG TABLET PO SCH (09:00)
[2017-04-18] MEDS: APIXABAN 5 MG TABLET PO SCH (09:00)
[2017-04-18] MEDS ORDERED: LORazepam 2 MG/ML, 1ML IVPush PRN (11:30)
[2017-04-18] MEDS ORDERED: MORPHINE SULFATE 4 MG/ML, 1ML IV PRN (11:30)
[2017-04-18] MEDS: ATROPINE OPHTH SOLN 1%, 5ML BC PRN ×2 (19:56→21:22)
== END 2017-04-19 05:13 | disposition expired | DRG 673 ==
LOC: ED 10:32 → EDIP 11:11 → 5SO 12:28 → ICU 04-02 11:10 → 4EST 04-13 15:36
PROVIDERS: ADMIT Hospitalist; ATTEND Internal Medicine
PROC: 0W9G3ZZ Drainage of Peritoneal Cavity, Percutaneous Approach (ICD-10-PCS; 2017-03-28)
PROC: 0BH17EZ Insertion of Endotracheal Airway into Trachea, Via Natural or Artificial Opening (ICD-10-PCS; 2017-04-02)
PROC: 02HV33Z Insertion of Infusion Device into Superior Vena Cava, Percutaneous Approach (ICD-10-PCS; 2017-04-02)
PROC: B548ZZA Ultrasonography of Superior Vena Cava, Guidance (ICD-10-PCS; 2017-04-02)
PROC: 5A1D70Z Performance of Urinary Filtration, Intermittent, Less than 6 Hours Per Day (ICD-10-PCS; 2017-04-04)
PROC: 02HV33Z Insertion of Infusion Device into Superior Vena Cava, Percutaneous Approach (ICD-10-PCS; 2017-04-04)
PROC: B548ZZA Ultrasonography of Superior Vena Cava, Guidance (ICD-10-PCS; 2017-04-04)
PROC: 5A1D70Z Performance of Urinary Filtration, Intermittent, Less than 6 Hours Per Day (ICD-10-PCS; 2017-04-05)
PROC: 5A1D70Z Performance of Urinary Filtration, Intermittent, Less than 6 Hours Per Day (ICD-10-PCS; 2017-04-07)
PROC: 5A1935Z Respiratory Ventilation, Less than 24 Consecutive Hours (ICD-10-PCS; 2017-04-08)
PROC: 5A1D70Z Performance of Urinary Filtration, Intermittent, Less than 6 Hours Per Day (ICD-10-PCS; 2017-04-08)
PROC: 5A1D70Z Performance of Urinary Filtration, Intermittent, Less than 6 Hours Per Day (ICD-10-PCS; 2017-04-10)
PROC: 5A1D70Z Performance of Urinary Filtration, Intermittent, Less than 6 Hours Per Day (ICD-10-PCS; 2017-04-12)
PROC: 0JH63XZ Insertion of Tunneled Vascular Access Device into Chest Subcutaneous Tissue and Fascia, Percutaneous Approach (ICD-10-PCS; 2017-04-12)
PROC: 02HV33Z Insertion of Infusion Device into Superior Vena Cava, Percutaneous Approach (ICD-10-PCS; 2017-04-12)
PROC: B548ZZA Ultrasonography of Superior Vena Cava, Guidance (ICD-10-PCS; 2017-04-12)
PROC: 5A1D70Z Performance of Urinary Filtration, Intermittent, Less than 6 Hours Per Day (ICD-10-PCS; 2017-04-14)
PROC: 5A1D70Z Performance of Urinary Filtration, Intermittent, Less than 6 Hours Per Day (ICD-10-PCS; principal; 2017-04-17)
DX: N17.9 Acute kidney failure, unspecified (principal); I21.4 Non-ST elevation (NSTEMI) myocardial infarction; K76.7 Hepatorenal syndrome; J96.21 Acute and chronic respiratory failure with hypoxia; E43 Unspecified severe protein-calorie malnutrition; A04.72 Enterocolitis due to Clostridium difficile, not specified as recurrent; R57.9 Shock, unspecified; G93.41 Metabolic encephalopathy; D68.59 Other primary thrombophilia; I50.43 Acute on chronic combined systolic (congestive) and diastolic (congestive) heart failure; I13.0 Hypertensive heart and chronic kidney disease with heart failure and stage 1 through stage 4 chronic kidney disease, or unspecified chronic kidney disease; N39.0 Urinary tract infection, site not specified; S82.62XA Displaced fracture of lateral malleolus of left fibula, initial encounter for closed fracture; W19.XXXA Unspecified fall, initial encounter; L89.151 Pressure ulcer of sacral region, stage 1; D69.6 Thrombocytopenia, unspecified; G20 Parkinson's disease; B95.2 Enterococcus as the cause of diseases classified elsewhere; D50.9 Iron deficiency anemia, unspecified; F32.9 Major depressive disorder, single episode, unspecified; F95.2 Tourette's disorder; G47.33 Obstructive sleep apnea (adult) (pediatric); I25.10 Atherosclerotic heart disease of native coronary artery without angina pectoris; I25.5 Ischemic cardiomyopathy; I34.0 Nonrheumatic mitral (valve) insufficiency; I35.1 Nonrheumatic aortic (valve) insufficiency; I48.2 Chronic atrial fibrillation; I73.9 Peripheral vascular disease, unspecified; J44.9 Chronic obstructive pulmonary disease, unspecified; K21.9 Gastro-esophageal reflux disease without esophagitis; K70.31 Alcoholic cirrhosis of liver with ascites; K72.10 Chronic hepatic failure without coma; N25.0 Renal osteodystrophy; R29.6 Repeated falls; Z66 Do not resuscitate; Z96.651 Presence of right artificial knee joint; F10.10 Alcohol abuse, uncomplicated; R16.1 Splenomegaly, not elsewhere classified; R74.0 Nonspecific elevation of levels of transaminase and lactic acid dehydrogenase [LDH]; R79.89 Other specified abnormal findings of blood chemistry; Z68.25 Body mass index [BMI] 25.0-25.9, adult; Z79.01 Long term (current) use of anticoagulants; I25.2 Old myocardial infarction; Z86.73 Personal history of transient ischemic attack (TIA), and cerebral infarction without residual deficits; Z87.891 Personal history of nicotine dependence; Z90.49 Acquired absence of other specified parts of digestive tract; Z95.0 Presence of cardiac pacemaker; Z95.1 Presence of aortocoronary bypass graft; Z95.5 Presence of coronary angioplasty implant and graft; Z88.5 Allergy status to narcotic agent; Z89.421 Acquired absence of other right toe(s)
CPT/HCPCS: 36415; 36556; 36565; 36600; 49083; 70450; 71010; 72220; 74000; 74230; 76705; 76937; 77001; 80048; 80053; 80069; 80076; 81001; 82140; 82306; 82310; 82533; 82728; 82803; 83540; 83550; 83615; 83690; 83735; 83880; 83970; 84100; 84132; 84157; 84478; 84484; 84550; 85025; 85045; 85520; 85610; 86480; 86704; 86706; 86850; 86900; 87040; 87070; 87081; 87086; 87205; 87324; 87340; 87493; 88112; 89051; 93005; 94002; 94003; 94150; 94640; 96361; 96374; 99156; 99157; C1894; C8929; J1644; J1940; J2185; J2250; J2405; J2704; J3010; J3370; J3490; J7620; P9047; C1750; C1751; C1769; C9113; J1642; J2060; J2310; J2765; J7030; J7050; S0028